=== PATIENT | female | born 1975 | race Two or more races ===

== ENCOUNTER 2018-09-20 07:34 | Outpatient (CLI) | payer OTHER ==
[~2018-09-20 07:34] MED LIST: AMOX1TAB12 PO; FLONASE16 G1 NS
== END 2018-09-20 15:00 | disposition home or self-care (01) ==
LOC: LAB 07:34
DX: R19.4 Change in bowel habit (principal); K59.01 Slow transit constipation; K64.2 Third degree hemorrhoids; K92.1 Melena

== ENCOUNTER 2018-09-26 07:46 | Day surgery (SDC) | payer OTHER | END 2018-09-26 13:00 | disposition home or self-care (01) | LOC: AMB-ENDOS 07:46 | DX: K64.8 Other hemorrhoids (principal) ==

== ENCOUNTER 2021-06-11 07:34 | Outpatient (CLI) | payer OTHER ==
[~2021-06-11 07:34] MED LIST changes: +CORTISPORIN EAR10 M1 OT; +FLEXERIL 10 MG PO; +VOLTAREM 50MG; +VOLTAREM 50MG PO
== END 2021-06-11 07:36 | disposition home or self-care (01) ==
LOC: LAB 07:34
PROVIDERS: ATTEND Internal Medicine Geriatric Medicine
DX: E03.8 Other specified hypothyroidism (principal); N39.0 Urinary tract infection, site not specified; E78.2 Mixed hyperlipidemia; E11.9 Type 2 diabetes mellitus without complications; I11.9 Hypertensive heart disease without heart failure

== ENCOUNTER 2021-06-22 07:40 | Emergency (ER) | payer OTHER ==
[~2021-06-22] VITALS: Ht 167.6 cm; Wt 88.9 kg
[2021-06-22] MEDS ORDERED: FORTAMET500 MG (08:09)
[2021-06-22] MEDS ORDERED: ZANAFLEX4 M1 PO (10:56)
== END 2021-06-22 11:00 | disposition home or self-care (01) ==
LOC: ER 07:40
DX: S10.83XA Contusion of other specified part of neck, initial encounter (principal); S40.012A Contusion of left shoulder, initial encounter; S40.011A Contusion of right shoulder, initial encounter; V43.92XA Unspecified car occupant injured in collision with other type car in traffic accident, initial encounter; Y93.89 Activity, other specified; Y92.488 Other paved roadways as the place of occurrence of the external cause; Y99.8 Other external cause status; M54.2 Cervicalgia; M25.512 Pain in left shoulder; M25.511 Pain in right shoulder

== ENCOUNTER 2021-07-08 08:00 | Outpatient (CLI) | payer OTHER ==
[~2021-07-08 08:00] MED LIST changes: +FORTAMET500 MG; +ZANAFLEX4 M1 PO
== END 2021-07-08 08:30 | disposition home or self-care (01) ==
LOC: PPH VACUNA 08:00
PROVIDERS: ATTEND Emergency Medicine Pediatric Emergency Medicine
DX: Z23 Encounter for immunization (principal)

== ENCOUNTER → 2021-07-09 07:14 | Outpatient (CLI) | payer OTHER | END | disposition home or self-care (01) | LOC: LAB 07:14 | PROVIDERS: ATTEND Internal Medicine Endocrinology, Diabetes & Metabolism | DX: D64.89 Other specified anemias (principal); E11.65 Type 2 diabetes mellitus with hyperglycemia; D51.0 Vitamin B12 deficiency anemia due to intrinsic factor deficiency ==

== ENCOUNTER 2021-07-14 08:00 | Outpatient (CLI) | payer OTHER | END 2021-07-14 08:30 | disposition home or self-care (01) | LOC: PPH VACUNA 08:00 | PROVIDERS: ATTEND Emergency Medicine Pediatric Emergency Medicine | DX: Z23 Encounter for immunization (principal) ==

== ENCOUNTER 2021-08-03 14:21 | Outpatient (CLI) | payer OTHER | END 2021-08-03 14:25 | disposition home or self-care (01) | LOC: MAMO-SONO 14:21 | PROVIDERS: ATTEND Specialist | DX: N60.01 Solitary cyst of right breast (principal); Z12.31 Encounter for screening mammogram for malignant neoplasm of breast; D25.9 Leiomyoma of uterus, unspecified ==

== ENCOUNTER 2021-09-09 07:01 | Outpatient (CLI) | payer OTHER | END 2021-09-09 07:08 | disposition home or self-care (01) | LOC: LAB 07:01 | PROVIDERS: ATTEND Specialist | DX: I10 Essential (primary) hypertension (principal); D50.8 Other iron deficiency anemias; D68.8 Other specified coagulation defects; E83.51 Hypocalcemia; Z13.1 Encounter for screening for diabetes mellitus; N39.0 Urinary tract infection, site not specified; Z01.810 Encounter for preprocedural cardiovascular examination ==

== ENCOUNTER 2021-09-10 07:18 | Outpatient (CLI) | payer OTHER | END 2021-09-10 07:21 | disposition home or self-care (01) | LOC: RAD 07:18 | PROVIDERS: ATTEND Specialist | DX: R07.89 Other chest pain (principal); Z01.811 Encounter for preprocedural respiratory examination ==

== ENCOUNTER 2021-09-15 09:30 | Inpatient (IN) | payer OTHER ==
[~2021-09-15] VITALS: Ht 167.6 cm; Wt 188.0 kg
[2021-09-15] MEDS ORDERED: GLUMETZA500 MG (11:07)
== END 2021-09-21 08:16 | disposition home or self-care (01) | DRG 743 ==
LOC: OB/GYN 09-18 05:52 → O/R 09-18 05:52 → OB/GYN 09-18 07:00
PROVIDERS: ADMIT Specialist; ATTEND Specialist
PROC: 0UT90ZZ Resection of Uterus, Open Approach (ICD-10-PCS; principal; 2021-09-18 07:00)
DX: D25.0 Submucous leiomyoma of uterus (principal); D25.1 Intramural leiomyoma of uterus; D25.2 Subserosal leiomyoma of uterus; N72 Inflammatory disease of cervix uteri; N73.6 Female pelvic peritoneal adhesions (postinfective); E11.9 Type 2 diabetes mellitus without complications

== ENCOUNTER 2021-10-27 10:34 | Outpatient (CLI) | payer OTHER ==
[~2021-10-27 10:34] MED LIST changes: +GLUMETZA500 MG
== END 2021-10-27 10:41 | disposition home or self-care (01) ==
LOC: LAB 10:34
PROVIDERS: ATTEND Specialist
DX: D64.89 Other specified anemias (principal)

== ENCOUNTER 2022-01-07 06:48 | Outpatient (CLI) | payer OTHER | END 2022-01-07 06:53 | disposition home or self-care (01) | LOC: LAB 06:48 | PROVIDERS: ATTEND Internal Medicine Endocrinology, Diabetes & Metabolism | DX: E11.65 Type 2 diabetes mellitus with hyperglycemia (principal); D64.9 Anemia, unspecified; E55.9 Vitamin D deficiency, unspecified; D51.0 Vitamin B12 deficiency anemia due to intrinsic factor deficiency; E78.2 Mixed hyperlipidemia ==

== ENCOUNTER 2022-02-25 10:40 | Outpatient (CLI) | payer OTHER | END 2022-02-25 10:41 | disposition home or self-care (01) | LOC: LAB 10:40 | PROVIDERS: ATTEND General Practice | DX: R07.0 Pain in throat (principal) ==

== ENCOUNTER 2022-04-09 07:02 | Outpatient (CLI) | payer OTHER | END 2022-04-09 07:07 | disposition home or self-care (01) | LOC: LAB 07:02 | PROVIDERS: ATTEND Internal Medicine Endocrinology, Diabetes & Metabolism | DX: E11.65 Type 2 diabetes mellitus with hyperglycemia (principal) ==

== ENCOUNTER 2022-06-21 13:59 | Outpatient (CLI) | payer OTHER | END 2022-06-21 14:05 | disposition home or self-care (01) | LOC: LAB 13:59 | PROVIDERS: ATTEND Preventive Medicine Occupational Medicine | DX: U07.1 COVID-19 (principal) ==

== ENCOUNTER 2022-06-30 10:08 | Outpatient (CLI) | payer OTHER | END 2022-06-30 10:13 | disposition home or self-care (01) | LOC: PPH VACUNA 10:08 | PROVIDERS: ATTEND Emergency Medicine Pediatric Emergency Medicine | DX: Z23 Encounter for immunization (principal) ==

== ENCOUNTER 2022-09-08 06:41 | Outpatient (CLI) | payer OTHER | END 2022-09-08 06:45 | disposition home or self-care (01) | LOC: LAB 06:41 | PROVIDERS: ATTEND Internal Medicine Endocrinology, Diabetes & Metabolism | DX: E11.65 Type 2 diabetes mellitus with hyperglycemia (principal); D64.9 Anemia, unspecified; E55.9 Vitamin D deficiency, unspecified ==

== ENCOUNTER 2022-09-13 07:34 | Outpatient (CLI) | payer OTHER | END 2022-09-13 08:37 | disposition home or self-care (01) | LOC: LAB 07:34 | PROVIDERS: ATTEND Surgery | DX: Z03.818 Encounter for observation for suspected exposure to other biological agents ruled out (principal); Z20.822 Contact with and (suspected) exposure to COVID-19; R19.4 Change in bowel habit; K59.01 Slow transit constipation; K64.2 Third degree hemorrhoids; K92.1 Melena ==

== ENCOUNTER 2022-12-22 14:09 | Outpatient (CLI) | payer OTHER | END 2022-12-22 14:17 | disposition home or self-care (01) | LOC: RAD 14:09 | PROVIDERS: ATTEND Physical Medicine & Rehabilitation | DX: M25.551 Pain in right hip (principal); M25.552 Pain in left hip ==

== ENCOUNTER 2023-06-09 | Outpatient (CLI) | payer OTHER | END 2023-06-09 00:15 | disposition home or self-care (01) | LOC: PPH VACUNA | PROVIDERS: ATTEND Emergency Medicine Pediatric Emergency Medicine | DX: Z23 Encounter for immunization (principal) ==

== ENCOUNTER → 2023-09-05 06:53 | Outpatient (CLI) | payer OTHER ==
[2023-09-05 08:02] LABS: MEAN CELL VOLUME 84.5 fL (80.00-100.00); MEAN CORPUSCULAR HGB CONC 34.3 g/dl (32.0-36.0); PLATELET COUNT 272 K/uL (150-450); RED BLOOD COUNT 4.49 M/uL (4.00-6.00); RED CELL DISTRIBUTION WIDTH 13.1 % (11.5-14.5)
[2023-09-05 08:43] LABS: ALBUMIN 3.4 gm/dL (3.4-5.0); BILIRUBIN TOTAL 0.62 mg/dL (0.3-1.2); CALCIUM 9.2 mg/dL (8.5-10.1); CHOL HDL RATIO 3.5 (0-5.0); CREATININE SERUM 0.66 mg/dL (0.55-1.02); GLOBULINA 4.1 G/DL (2.4-3.5); POTASSIUM 4.32 mEq/L (3.5-5.1); TOTAL PROTEIN 7.5 gm/dL (6.4-8.2)
== END | disposition home or self-care (01) ==
LOC: LAB 06:53
DX: R73.03 Prediabetes (principal); I11.9 Hypertensive heart disease without heart failure; E66.8 Other obesity; Z88.6 Allergy status to analgesic agent

== ENCOUNTER 2024-01-11 09:50 | Outpatient (CLI) | payer OTHER | END 2024-01-11 09:53 | disposition home or self-care (01) | LOC: LAB 09:50 | PROVIDERS: ATTEND Specialist | DX: Z02.79 Encounter for issue of other medical certificate (principal) ==

== ENCOUNTER 2024-01-16 09:51 | Outpatient (CLI) | payer OTHER | END 2024-01-16 14:01 | disposition home or self-care (01) | LOC: LAB 09:51 | PROVIDERS: ATTEND Specialist | DX: Z02.79 Encounter for issue of other medical certificate (principal) ==

== ENCOUNTER 2024-06-28 06:57 | Outpatient (CLI) | payer OTHER ==
[2024-06-28 08:09] LABS: ALBUMIN 3.4 gm/dL (3.4-5.0); BILIRUBIN TOTAL 0.79 mg/dL (0.3-1.2); CHOL HDL RATIO 3.3 (0-5.0); CREATININE SERUM 0.56 mg/dL (0.55-1.02); GFR 116.04; GLOBULINA 3.7 G/DL (2.4-3.5); POTASSIUM 4.15 mEq/L (3.5-5.1); TOTAL PROTEIN 7.1 gm/dL (6.4-8.2)
== END 2024-06-28 07:08 | disposition home or self-care (01) ==
LOC: LAB 06:57
DX: E78.5 Hyperlipidemia, unspecified (principal); R73.03 Prediabetes